=== PATIENT | male | born 1960 | race Caucasian/White ===

== ENCOUNTER 2018-10-12 06:23 | Observation (INO) ==
--- NOTE | 2018-09-27 16:34 | PAT Medication Instructions ---
Medication Instructions Date of Service September 28, 2018 Home Medications atorvastatin 20 mg PO PM dutasteride 0.5 mg PO QPM tamsulosin 0.4 mg PO BID Take morning of surgery With a small sip of water, OTHERWISE NOTHING TO EAT OR DRINK AFTER MIDNIGHT: tamsulosin 0.4 mg PO BID Take evening before surgery atorvastatin 20 mg PO PM dutasteride 0.5 mg PO QPM tamsulosin 0.4 mg PO BID Other Notes If you have any questions please call us at [phone] or [phone] or [phone] or [phone]
--- NOTE | 2018-09-28 10:13 | Anesthesiology Consultation ---
Date of Service September 28, 2018 Assessment & Plan (1) Encounter for pre-operative examination: - No previous anesthesia records Chart Review Chart Review: Acceptable Risk for Surgery and Patient seen in Pre Admission Testing Consults Requested none Teaching & Discussion Pre-Anesthesia Teaching/Discussion Notes: Instructed NPO after midnight before surgery, except medications with 15 cc of water. Medication instructions provided according to the PAT guidelines. History Surgery Operation Date: 10/12/18 07:50 Proposed Procedures p Transurethral Resection Prostate, Possible Meatotomy - Matthew Norris MD Height/Weight Height: 5 ft 9.5 in Weight: 71.5 kg Allergies Allergy/AdvReac Type Severity Reaction Status Date / Time No Known Drug Allergies Allergy Verified 09/22/18 16:22 Medications Home Medications Medication Instructions Recorded Confirmed Last Taken atorvastatin 20 mg PO PM 09/23/18 09/23/18 Unknown dutasteride 0.5 mg PO QPM 09/23/18 09/23/18 Unknown tamsulosin 0.4 mg PO BID 09/23/18 09/23/18 Unknown Past Medical History Medical History BPH (benign prostatic hyperplasia) Hyperlipidemia Exercise / Class Metabolic Activity III < 4 Walking/Shop/Light housework (Limited due to recent hernia repair. Able to climb FOS. Denies CP or SOB with activity. ) Past Family History Family History Aunt Family history of diabetes mellitus Uncle Family history of diabetes mellitus Past Surgical History Surgical History Hx of colonoscopy Hx of left inguinal hernia repair Hx of right inguinal hernia repair Hx of wisdom tooth extraction Past Anesthesia History No Hx of Anesthesia Complications and No Family Hx of Anesthesia Complications History of PONV No Hx of PONV and No Hx of Motion Sickness (Unless trying to read in the car) Social History Smoking Status: Current every day smoker tobacco type: cigarettes Smoking cigarettes per day: 3-4 cigarettes per day Do You Dip or Chew Tobacco: No Hx Alcohol Use: Yes Alcohol type: beer, wine and hard liquor alcohol intake frequency: a few times a month Hx Substance Use: No Review of Systems Patient denies chest pain, shortness of breath, dyspnea on exertion, joint pain, reflux, cough, wheezing, palpitations. Physical Exam Vital Signs BP: 117/75 P: 68 R: 18 T: 98.0 SPO2: 96% on RA ENMT Mouth: + poor dentition and + loose teeth Thyromental Distance: < 3.5 Finger Breadths (3) Mallampati Class: I Mouth / Teeth: 1. Tooth broken in half, but both halves still in place. Neck normal visual inspection and trachea midline; neck extension not limited Respiratory normal respiratory effort Auscultation: lungs clear to auscultation bilaterally Rare end expiratory wheeze that cleared with cough Cardiovascular Rate/Rhythm: regular rate and regular rhythm Heart Sounds: no murmur Vessels: no carotid bruit Neurologic moves all extremities Psychiatric Orientation: alert and oriented x 3 Testing Laboratory Results 09/28/18 10:25 09/28/18 11:25 Urine Color Yellow 09/28/18 10:25 Urine Appearance Cloudy (Clear) A 09/28/18 10:25 Urine pH 8.0 (4.5-7.5) H 09/28/18 10:25 Ur Specific [place] 1.013 (1.000-1.030) 09/28/18 10:25 Urine Protein Negative (Negative) 09/28/18 10:25 Urine Glucose (UA) Negative (Negative) 09/28/18 10:25 Urine Ketones Negative (Negative) 09/28/18 10:25 Urine Nitrite Negative (Negative) 09/28/18 10:25 Ur Leukocyte Esterase 2+ (Negative) H 09/28/18 10:25 Urine WBC (Auto) >30 /hpf (0-5) H 09/28/18 10:25 Urine RBC (Auto) 0-4 /hpf (0-4) 09/28/18 10:25 U Hyaline Cast (Auto) 1-5 /lpf (0-5) 09/28/18 10:25 U Epithel Cells (Auto) 0-5 /lpf (0-5) 09/28/18 10:25 Urine Bacteria (Auto) Negative (Negative) 09/28/18 10:25 09/28/18 10:25 Urine Culture - Preliminary Urine,Clean Catch Staphylococcus species Electrocardiogram Date: 08/11/18 Findings: + NSR @ (75) Chest X-Ray Date: 09/28/18 Findings: + NAD FINDINGS: The bones soft tissues and hemidiaphragms are normal. The cardiomediastinal silhouette is normal. The lungs are clear. The pulmonary vasculature is normal. IMPRESSION: Negative chest.
[2018-09-28 10:49] LABS: Basophils # (auto) 0.02 K/uL (0-0.2); Basophils % (auto) 0.2 %; Eosinophils # (auto) 0.35 K/uL (0-0.5); Eosinophils % (auto) 4.1 %; Hematocrit (blood only) 44.9 % (42-52); Hemoglobin 15.5 g/dL (14.0-18.0); Immature Granulocytes # (auto) 0.02 K/uL (0.00-0.02); Immature Granulocytes % (auto) 0.2 %; Lymphocytes # (auto) 2.98 K/uL (1.2-3.4); Lymphocytes % (auto) 34.7 %; Mean Corpuscular Hgb Conc 34.5 g/dL (32-36); Mean Corpuscular Volume 91.1 fL (80-100); Mean Platelet Volume 9.2 fL (7.4-10.4); Monocytes # (auto) 0.61 K/uL (0.11-0.59); Monocytes % (auto) 7.1 %; Neutrophils # (auto) 4.62 K/uL (1.4-6.5); Neutrophils % (auto) 53.7 %; Platelet Count 182 K/uL (130-400); RDW Coefficient of Variation 14.9 % (11.5-14.5); RDW Standard Deviation 50.1 fL (36.4-46.3); Red Blood Count 4.93 M/uL (4.7-6.1)
[2018-09-28 10:50] LABS: Appearance Urine Cloudy (Clear); Bacteria Urine Automated Negative (Negative); Bilirubin Urine Negative (Negative); Blood Urine Negative (Negative); Color Urine Yellow; Epithelial Cell Urine Auto 0-5 /lpf (0-5); Glucose Urine UA Negative (Negative); Ketones Urine Negative (Negative); Leukocyte Esterase Urine 2+ (Negative); Nitrite Urine Negative (Negative); Protein Urine Negative (Negative); RBC Urine Automated 0-4 /hpf (0-4); Specific Gravity Urine 1.013 (1.000-1.030); Urobilinogen Urine Negative (Negative); WBC Urine Automated >30 /hpf (0-5)
--- NOTE | 2018-09-28 11:05 | XRay Report ---
XR chest Pre-admission PA/Lat CLINICAL HISTORY: PAT preoperative evaluation COMPARISON STUDY: No previous studies for comparison. FINDINGS: The bones soft tissues and hemidiaphragms are normal. The cardiomediastinal silhouette is n ormal. The lungs are clear. The pulmonary vasculature is normal. IMPRESSION: Negative chest. The above report was generated using voice recognition software. It may contain grammatical, syntax or spelling errors. Electronically signed by: Remy Tristan M.D. 09/28/2018 11:04 AM
[2018-09-28 12:42] LABS: BUN Creatinine Ratio 11.2 (10-20); Calcium 8.9 mg/dl (8.5-10.1); Creatinine Clr Calc Pharmacy 88.4 ml/min; Est GFR (African American) 106.5; Est GFR (Non-African American) 91.9
[~2018-10-12 06:23] MED LIST: GENTAMICIN SULFATE 240 MG in DEXTROSE 5% 100 ML IV SCH; LR 15ML/HR IV SCH
[2018-10-12] MEDS ORDERED: NEOMYCIN/POLYMYX/BACITR OINT 15 GM TUBE ONE (07:06)
[2018-10-12] MEDS ORDERED: BUPIVACAINE 0.5 % 5 MG/1 ML MPF 30ML VIAL ONE (07:06)
[2018-10-12] MEDS ORDERED: fentaNYL citrate 100 MCG/2 ML VIAL ONE ×2 (07:10→08:55)
[2018-10-12] MEDS ORDERED: DEXAMETHASONE SOD INJ 4 MG/ML VIAL ONE (07:10)
[2018-10-12] MEDS ORDERED: PROPOFOL IV EMULSION 10 MG/ML 20 ML VIAL IV ONE ×2 (07:10→08:46)
[2018-10-12] MEDS ORDERED: LIDOCAINE HCL 2% 2 ML VIAL/AMP(20MG/ML) INFIL ONE (07:10)
[2018-10-12] MEDS ORDERED: ONDANSETRON INJ 2 MG/ML 2 ML VIAL ONE (07:10)
[2018-10-12] MEDS ORDERED: MIDAZOLAM HCL 1 MG/ML 2ML VIAL ONE (07:10)
[2018-10-12] MEDS ORDERED: ATROPINE SULFATE 0.1 MG/ML 10ML SYR IV PRN (07:37)
[2018-10-12] MEDS ORDERED: ONDANSETRON INJ 2 MG/ML 2 ML VIAL IV PRN (07:37)
[2018-10-12] MEDS ORDERED: fentaNYL citrate 100 MCG/2 ML VIAL IV PRN (07:37)
[2018-10-12] MEDS ORDERED: HYDROmorphone INJ 1 MG/ML SYRINGE IV PRN (07:37)
[2018-10-12] MEDS ORDERED: ePHEDrine sulfate 50 MG/ML AMP IV PRN (07:37)
--- NOTE | 2018-10-12 08:13 | History & Physical Bridge Note ---
Date of Service October 12, 2018 History & Physical Bridge Note I have examined the patient, reviewed the History & Physical and in the interval since the performance of the History & Physical I have noted the following changes of clinical significance: no changes noted
[2018-10-12] MEDS ORDERED: KETAMINE HCL INJ 50 MG/ML 10 ML VIAL ONE (08:31)
[2018-10-12] MEDS ORDERED: ePHEDrine sulfate 50 MG/ML SYR ONE ×2 (08:39→09:35)
[2018-10-12] MEDS ORDERED: PHENYLEPHRINE 100MCG/ML 5ML SYR ONE (08:39)
--- NOTE | 2018-10-12 10:25 | Post Operative Brief Note ---
PG Immediate Post Op with CF Date of Surgery October 12, 2018 Pre & Post Diagnosis Operation Date: 10/12/18 08:05 Pre-Op Diagnosis: Benign Prostatic Hyperplasia with Urinary Obstruction Post-Op Diagnosis: Benign Prostatic Hyperplasia with Urinary Obstruction Procedure Operation Date: 10/12/18 08:05 Actual Procedures p Transurethral Resection Prostate(Not Applicable) - Matthew Norris MD Surgeon Matthew Norris MD Process Equipment Operator none Estimated Blood Loss 30 Findings Consistent with Post-Op Diagnosis Specimens Specimen Description: Permanent A: Prostate Chips Drains Kumar Catheter
[2018-10-12] MEDS ORDERED: OXYCODONE/ACETAMINOPHEN 5mg/325mg TAB PO PRN (10:28)
[2018-10-12] MEDS ORDERED: LACTATED RINGER'S 1,000 ML IV SCH (10:45)
--- NOTE | 2018-10-12 12:56 | Anesthesiology Progress Note ---
Date of Service October 12, 2018 Anesthesia Post Procedure Vital Signs Vital Signs: Temp Pulse Pulse Resp BP BP Pulse Ox 10/12/18 11:58 36.6 C 62 16 110/66 92 10/12/18 11:28 36.9 C 66 16 114/69 92 10/12/18 11:14 36.1 C L 72 16 121/74 93 10/12/18 11:04 76 16 111/72 95 10/12/18 10:54 77 16 105/66 98 10/12/18 10:44 84 14 121/57 L 98 10/12/18 10:34 36.2 C L 83 14 128/79 98 10/12/18 06:48 36.8 C 72 18 112/69 92 Transfer of Care Handoff Completed per policy Notes Mental Status: alert / awake / arousable and participated in evaluation Patient Amnestic to Procedure: Yes Nausea / Vomiting: adequately controlled Pain: adequately controlled Airway Patency, RR, SpO2: stable & adequate BP & HR: stable & adequate Hydration State: stable & adequate Anesthetic Complications: no major complications apparent and Pt Satisfied with anesthetic care
[2018-10-12] MEDS: LACTATED RINGER'S 1,000 ML IV SCH ×2 (14:39→22:05)
[2018-10-12] MEDS: CIPROFLOXACIN 500 MG TAB PO SCH (20:32)
[2018-10-12] MEDS ORDERED: ATORVASTATIN 20 MG TAB PO SCH (21:00)
--- NOTE | 2018-10-12 21:12 | Operative Report ---
DATE OF OPERATION: 10/12/2018 DATE OF PROCEDURE: 10/12/2018 PROCEDURE PERFORMED: TURP. PREOPERATIVE DIAGNOSIS: Benign prostatic hypertrophy. POSTOPERATIVE DIAGNOSIS: Benign prostatic hypertrophy. ANESTHESIA: General. SURGEON: Matthew Norris MD INDICATIONS: The patient is a 58-year-old male with a history of enlarged prostate with urinary retention, difficulty voiding, who on cystoscopy in the office had a large ball-valve prostate. We also had a narrow meatus. We had discussed doing an in-office procedure, minimally invasive, but did not feel that it would be effective with a ball-valve and the amount of retention the patient had. Because of this, recommended that we come to the hospital. Because his meatus was small, I told him he might need a meatotomy. He was prepared for this. DESCRIPTION OF THE PROCEDURE: The patient was taken to the operating room. I did dilate his meatus to 24-Malawian with Katie sounds and was able to introduce a 24-Malawian resectoscope. I was able to introduce this into the bladder. Then, I was able to examine the bladder, we did have trabeculation with some cellules and a large intravesical prostate. I began the resection with a ball-valve, resected significant amount of tissue till there was a good view from the verumontanum into the bladder with no ball-valve. Then, I used the button to smooth this area out and do a little more resection and try to control bleeding. Then, at the end of the procedure, all the chips have been irrigated out of the bladder. There was no evidence of any bleeding and a catheter with a 30 mL balloon was passed 2-way with a catheter guide and it was irrigated clear urine. The patient was then had 30 mL placed and he was transferred to the recovery room in stable condition. I attest to the content of the Intraoperative Record and any orders documented therein. Any exception s are noted below.
[2018-10-13] MEDS: LACTATED RINGER'S 1,000 ML IV SCH (05:34)
[2018-10-13] MEDS: CIPROFLOXACIN 500 MG TAB PO SCH (07:52)
--- NOTE | 2018-10-13 10:21 | Anesthesiology Progress Note ---
Date of Service October 13, 2018 Anesthesia Post Procedure Vital Signs Vital Signs: Temp Pulse Pulse Resp BP Pulse Ox 10/13/18 07:55 36.7 C 62 18 104/68 94 10/13/18 03:31 36.6 C 58 L 16 116/65 96 10/12/18 22:56 36.5 C 68 18 114/65 94 10/12/18 19:53 36.7 C 70 18 112/67 94 10/12/18 15:25 36.4 C L 61 18 109/67 96 10/12/18 14:42 36.4 C L 62 18 105/66 96 10/12/18 13:32 36.9 C 78 18 114/66 94 10/12/18 12:30 36.4 C L 75 18 113/74 93 10/12/18 11:58 36.6 C 62 16 110/66 92 10/12/18 11:28 36.9 C 66 16 114/69 92 10/12/18 11:14 36.1 C L 72 16 121/74 93 10/12/18 11:04 76 16 111/72 95 10/12/18 10:54 77 16 105/66 98 10/12/18 10:44 84 14 121/57 L 98 10/12/18 10:34 36.2 C L 83 14 128/79 98 Pain Intensity Penis: Pain Intensity: 1 Notes Mental Status: alert / awake / arousable and participated in evaluation Nausea / Vomiting: adequately controlled Pain: adequately controlled Airway Patency, RR, SpO2: stable & adequate BP & HR: stable & adequate Hydration State: stable & adequate
--- NOTE | 2018-10-13 13:23 | Urology Progress Note ---
Date of Service October 13, 2018 Assessment & Plan (1) BPH with urinary obstruction: POD #1 s/p TURP. Doing very well. Will coordinate discharge. TOV and follow up with Dr. Norris as scheduled. Subjective 58 YO male POD #1 s/p TURP. Patient feeling well this AM. No pain. Tolerating diet. Kumar in place, patent, draining clear yellow urine. No fevers/chills. Review of Systems Review of Systems: All systems reviewed & are unremarkable except as noted in HPI & below Physical Exam Physical Exam: WN/WD NAD. Resp effort normal. No JVD. Abd soft/nontender. : bladder nontender/nondistended. Kumar in place, patent, draining yellow urine. +Scant blood at meatus. Normal phallus. A&Ox3, appropriate affect. Results & Data Vital Signs (Past 12 Hours) Vital Signs Temp Pulse Pulse Resp BP Pulse Ox 10/13/18 11:57 36.8 C 55 L 18 108/66 97 10/13/18 07:55 36.7 C 62 18 104/68 94 10/13/18 03:31 36.6 C 58 L 16 116/65 96
--- NOTE | 2018-10-15 00:18 | Discharge Summary ---
HISTORY OF PRESENTATION: The patient is a 58-year-old male with significant retention of urine and bivalved prostate who was admitted on 10/12/2018 for TURP which went uneventfully. Postoperatively, he had a Kumar catheter in place, was observed overnight. His urine was clear the following day and he was discharged to home in a stable condition with oral antibiotics with instructions to follow up for catheter removal and trial of voiding in the office on 10/15/2018.
== END 2018-10-13 13:59 | disposition home or self-care (01) ==
LOC: ASU 06:23 → 3N 06:23
DX: N13.8 Other obstructive and reflux uropathy; F17.210 Nicotine dependence, cigarettes, uncomplicated; Z79.899 Other long term (current) drug therapy; Z80.42 Family history of malignant neoplasm of prostate; E78.5 Hyperlipidemia, unspecified; Q54.9 Hypospadias, unspecified; R33.9 Retention of urine, unspecified; N40.1 Benign prostatic hyperplasia with lower urinary tract symptoms